=== PATIENT | female | born 1965 | race Caucasian/White ===

== ENCOUNTER 2017-05-05 10:27 | Inpatient (IN) | payer BC, MEDICAID ==
[~2017-05-05] VITALS: Ht 154.9 cm; Wt 103.1 kg
[~2017-05-05 10:27] MED LIST: AMLO5TAB2 PO; BLOOD PRESSURE MED PO; CYAN10005 PO; DOCU-30 PO; ESCI10TA10 PO; ESCI20TA10 PO; FERR325T20 PO; MULT-82 PO; OMEP-110 PO; OXYC5TAB3 PO; SLEEPING PILL PO; TOPI50TA35 PO
[2017-05-05] MEDS ORDERED: LEVODOPA PO (10:45)
[2017-05-05] MEDS ORDERED: SODIUM CHLORIDE 0.9% 1,000ML IVBOLUS ONE (11:00)
[2017-05-05] MEDS ORDERED: SODIUM CHLORIDE FLUSH 10ML SYR IVF ONE (11:00)
[2017-05-05 11:21] LABS: ASPARTATE AMINO TRANSFERASE 17 U/L (15-37); BLOOD UREA NITROGEN 4 mg/dL (7-18)
[2017-05-05 11:27] LABS: ACETAMINOPHEN < 2 mcg/mL (10-30)
[2017-05-05 11:55] LABS: DAU SCREEN DISCLAIMER
[2017-05-05] MEDS ORDERED: POTASSIUM CHLORIDE 20 MEQ TAB.ER.PRT PO ONE (14:00)
[2017-05-05] MEDS ORDERED: POTASSIUM CHLORIDE 20 MEQ TAB.ER.PRT ONE (14:29)
[2017-05-05] MEDS ORDERED: LORazepam 2 MG/ML, 1ML ONE (14:51)
[2017-05-05] MEDS ORDERED: LORazepam 2 MG/ML, 1ML IVPush ONE (15:00)
[2017-05-05] MEDS ORDERED: CHLORDIAZEPOXIDE 25 MG CAPSULE PO PRN (20:30)
[2017-05-05] MEDS ORDERED: NS + 20MEQ KCL 1,000 ML IV ONE (20:58)
[2017-05-05] MEDS ORDERED: ONDANSETRON 2MG/ML, 2ML IVPush PRN (21:00)
[2017-05-05] MEDS: HEPARIN 5,000 UNITS/ML, 1ML SQ SCH (21:00)
[2017-05-05] MEDS: NS + 20MEQ KCL 1,000 ML IV SCH (21:03)
[2017-05-05] MEDS: AMLODIPINE 5 MG TABLET PO SCH (21:19)
[2017-05-05 23:18] VITALS: BP 187/89
[2017-05-06] MEDS: LORazepam 2 MG/ML, 1ML IVPush PRN (01:07)
[2017-05-06 01:46] VITALS: BP 170/89
[2017-05-06] MEDS ORDERED: MAGNESIUM SULFATE PMX 4GM/100M 100 ML IV ONE ×2 (03:30→09:30)
[2017-05-06] MEDS: HEPARIN 5,000 UNITS/ML, 1ML SQ SCH ×3 (04:42→20:30)
[2017-05-06 04:47] LABS: IS PT STATUS REG ER OR PRE ER? NO
[2017-05-06 06:23] LABS: ASPARTATE AMINO TRANSFERASE 16 U/L (15-37); BLOOD UREA NITROGEN 2 mg/dL (7-18)
[2017-05-06 06:34] VITALS: BP 144/87
[2017-05-06] MEDS ORDERED: IRON SUCROSE COMPLEX 100MG/5ML IV ONE (09:30)
[2017-05-06] MEDS ORDERED: POTASSIUM CHLORIDE 40 MEQ in SODIUM CHLORIDE 0.9% 500 ML IV ONE (09:30)
[2017-05-06] MEDS: THIAMINE 100MG TABLET PO SCH (09:41)
[2017-05-06] MEDS: AMLODIPINE 5 MG TABLET PO SCH ×2 (09:41→20:29)
[2017-05-06] MEDS: MULTIVITAMINS/MINERALS TABLET PO SCH (09:42)
[2017-05-06] MEDS: FOLIC ACID 1 MG TABLET PO SCH (09:42)
[2017-05-06 10:44] LABS: IS PT STATUS REG ER OR PRE ER? NO
[2017-05-06 13:45] VITALS: BP_SYST 164; BP_SYST 166; BP_DIAS 100; BP_DIAS 109
[2017-05-06 16:25] LABS: IS PT STATUS REG ER OR PRE ER? NO
[2017-05-06 18:32] VITALS: BP 157/89
[2017-05-06] MEDS: NS + 20MEQ KCL 1,000 ML IV SCH (20:29)
[2017-05-07 00:04] VITALS: BP 167/94
[2017-05-07 04:53] LABS: ASPARTATE AMINO TRANSFERASE 25 U/L (15-37); BLOOD UREA NITROGEN 2 mg/dL (7-18)
[2017-05-07] MEDS: HEPARIN 5,000 UNITS/ML, 1ML SQ SCH ×3 (04:58→19:49)
[2017-05-07] MEDS: LORazepam 2 MG/ML, 1ML IVPush PRN ×2 (04:58→23:32)
[2017-05-07] MEDS: NS + 20MEQ KCL 1,000 ML IV SCH (06:01)
[2017-05-07 08:00] VITALS: BP 175/105
[2017-05-07] MEDS: AMLODIPINE 5 MG TABLET PO SCH ×2 (08:38→19:49)
[2017-05-07] MEDS: THIAMINE 100MG TABLET PO SCH (08:38)
[2017-05-07] MEDS: MULTIVITAMINS/MINERALS TABLET PO SCH (08:38)
[2017-05-07] MEDS: FOLIC ACID 1 MG TABLET PO SCH (08:38)
[2017-05-07] MEDS ORDERED: IRON SUCROSE COMPLEX 100MG/5ML IV ONE (09:00)
[2017-05-07] MEDS ORDERED: hydrALAzine 20 MG/ML, 1ML IV PRN (11:00)
[2017-05-07] MEDS ORDERED: POTASSIUM CHLORIDE 40 MEQ in SODIUM CHLORIDE 0.9% 500 ML IV ONE (11:00)
[2017-05-07 14:00] VITALS: BP 143/94
[2017-05-07 19:45] VITALS: BP 148/91
[2017-05-07] MEDS: FERROUS GLUCONATE 324 MG TABLET PO SCH (19:49)
[2017-05-08 02:29] VITALS: BP 173/96
[2017-05-08] MEDS: LORazepam 1MG TABLET PO PRN ×2 (02:35→20:12)
[2017-05-08] MEDS: HEPARIN 5,000 UNITS/ML, 1ML SQ SCH ×3 (05:00→21:23)
[2017-05-08 06:43] VITALS: BP 147/95
[2017-05-08] MEDS: AMLODIPINE 5 MG TABLET PO SCH ×2 (09:03→21:23)
[2017-05-08] MEDS: FERROUS GLUCONATE 324 MG TABLET PO SCH ×2 (09:04→17:29)
[2017-05-08] MEDS: THIAMINE 100MG TABLET PO SCH (09:04)
[2017-05-08] MEDS: FOLIC ACID 1 MG TABLET PO SCH (09:04)
[2017-05-08] MEDS: MULTIVITAMINS/MINERALS TABLET PO SCH (09:04)
[2017-05-08 12:45] VITALS: BP 147/97
[2017-05-08 19:35] VITALS: BP 165/97
[2017-05-08 21:13] VITALS: BP 133/85
[2017-05-09] MEDS ORDERED: LORazepam 1MG TABLET PO ONE
[2017-05-09 01:37] VITALS: BP 128/82
[2017-05-09] MEDS: HEPARIN 5,000 UNITS/ML, 1ML SQ SCH ×3 (05:52→20:59)
[2017-05-09 07:58] VITALS: BP 138/88
[2017-05-09] MEDS: FOLIC ACID 1 MG TABLET PO SCH (09:28)
[2017-05-09] MEDS: THIAMINE 100MG TABLET PO SCH (09:28)
[2017-05-09] MEDS: FERROUS GLUCONATE 324 MG TABLET PO SCH ×2 (09:28→17:19)
[2017-05-09] MEDS: AMLODIPINE 5 MG TABLET PO SCH ×2 (09:28→20:59)
[2017-05-09] MEDS: MULTIVITAMINS/MINERALS TABLET PO SCH (09:28)
[2017-05-09] MEDS ORDERED: POTASSIUM CHLORIDE 20 MEQ TAB.ER.PRT PO ONE ×2 (11:30→16:00)
[2017-05-09 14:15] VITALS: BP 155/98
[2017-05-09 19:00] VITALS: BP 138/74
[2017-05-09] MEDS: LORazepam 1MG TABLET PO PRN (21:02)
[2017-05-10] MEDS: LORazepam 1MG TABLET PO PRN (01:00)
[2017-05-10 02:39] VITALS: BP 137/82
[2017-05-10] MEDS: HEPARIN 5,000 UNITS/ML, 1ML SQ SCH (06:05)
[2017-05-10 07:58] VITALS: BP 150/80
[2017-05-10] MEDS: FERROUS GLUCONATE 324 MG TABLET PO SCH (08:48)
[2017-05-10] MEDS: THIAMINE 100MG TABLET PO SCH (08:48)
[2017-05-10] MEDS: MULTIVITAMINS/MINERALS TABLET PO SCH (08:48)
[2017-05-10] MEDS: FOLIC ACID 1 MG TABLET PO SCH (08:48)
[2017-05-10] MEDS: AMLODIPINE 5 MG TABLET PO SCH (08:48)
[2017-05-10 12:00] VITALS: BP 139/90
[2017-05-10] MEDS ORDERED: THIA100T6 PO (13:59)
[2017-05-10] MEDS ORDERED: FERR325T16 PO (13:59)
[2017-05-10] MEDS ORDERED: FOLI-17 PO (13:59)
[2017-05-10] MEDS ORDERED: MULT-484 PO (13:59)
== END 2017-05-10 16:54 | disposition home or self-care (01) | DRG 918 ==
LOC: ED 11:49 → EDIP 20:27 → 3NE 22:00 → 5SO 05-06 04:27 → 3NE 05-08 17:57
PROVIDERS: ADMIT Internal Medicine; ATTEND Internal Medicine
DX: T42.8X2A Poisoning by antiparkinsonism drugs and other central muscle-tone depressants, intentional self-harm, initial encounter (principal); E44.1 Mild protein-calorie malnutrition; Z68.41 Body mass index [BMI] 40.0-44.9, adult; I10 Essential (primary) hypertension; D50.9 Iron deficiency anemia, unspecified; E83.42 Hypomagnesemia; E87.6 Hypokalemia; G47.00 Insomnia, unspecified; G25.81 Restless legs syndrome; F31.9 Bipolar disorder, unspecified; F10.229 Alcohol dependence with intoxication, unspecified; Y90.6 Blood alcohol level of 120-199 mg/100 ml; D75.89 Other specified diseases of blood and blood-forming organs; Z98.84 Bariatric surgery status; Z90.49 Acquired absence of other specified parts of digestive tract; Z79.899 Other long term (current) drug therapy; Y92.89 Other specified places as the place of occurrence of the external cause
CPT/HCPCS: 36415; 80053; 80307; 80329; 82728; 83540; 83550; 83735; 84100; 84484; 84703; 85025; 85610; 85730; 93005; 96374; J1644; J1756; J3480; G0480; J0360; J2060; J3475; J7030; J7040